=== PATIENT | female | born 1980 | race Caucasian/White ===

== ENCOUNTER 2016-10-06 17:22 | Emergency (ER) | payer BC ==
[~2016-10-06] VITALS: Ht 152.4 cm; Wt 47.6 kg
[2016-10-06 17:25] VITALS: BP 132/88
--- NOTE | 2016-10-06 17:55 | PHYS DOC ---
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 She states that she is also having sinus pressure above the frontal sinus areas. She then states that she is having pain that radiates down her bilateral next 7 to bilateral arms. Patient with equal carrier operator equal peripheral pulses are 2 + cap refills brisk less than 2 seconds. Patient states the pain and discomfort started last night when she was sitting outside. She states that she did try to move a bag of thao letter at [facility] and was unsuccessful. She denies any trauma or falls or injuries. Patient states that last night she took Good[employer] with no relief. She states that while they were in route here to the emergency department today they stopped and she got some ibuprofen she states that she took ibuprofen prior to arrival seems to be feeling a little better. 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 She denies any blurred vision. She does state she thinks she might had a fever yesterday but not take her temperature. Review of Systems Review of Systems Constitutional: Denies fever or chills [] Eyes: Denies change in visual acuity, redness, or eye pain [] HENT: Denies nasal congestion or sore throat. Pain behind bilateral ears with pressure. Respiratory: Denies cough or shortness of breath [] Cardiovascular: No additional information not addressed in HPI [] GI: Denies abdominal pain, nausea, vomiting, bloody stools or diarrhea [] : Denies dysuria or hematuria [] Musculoskeletal: bilateral upper back/neck pain that radiated into bilateral arms. Integument: Denies rash or skin lesions [] Neurologic: Denies headache, focal weakness or sensory changes [] Allergies Allergies Allergies Coded Allergies Type Severity Reaction Last Updated Verified No Known Drug Allergies 10/06/16 No Physical Exam Physical Exam Constitutional: Well developed, well nourished, no acute distress, non-toxic appearance. [] HENT: Normocephalic, atraumatic, bilateral external ears normal, oropharynx moist, no oral exudates, nose normal. Bilateral tympanic membranes appear to be normal. Patient with frontal sinus tenderness on the right. Nares appears to be normal bilaterally. Throat with no erythematous or any nature noted. No anterior cervical adenopathy noted. Eyes: PERRLA, EOMI, conjunctiva normal, no discharge. [] Neck: Normal range of motion, no tenderness, supple, no stridor. [] Cardiovascular:Heart rate regular rhythm, no murmur [] Lungs & Thorax: Bilateral breath sounds clear to auscultation [] Skin: Warm, dry, no erythema, no rash. [] Back: Bilateral neck tenderness with bilateral upper back tenderness. Extremities: No tenderness, no cyanosis, no clubbing, ROM intact, no edema. Shunt was noted to have tenderness over bilateral collarbone areas as well. Equal strength equal carrier operator noted peripheral extremities. Peripheral pulses 2+ cap refill brisk less than 2 seconds. Good sensation noted. Neurologic: Alert and oriented X 3, normal motor function, normal sensory function, no focal deficits noted. [] Psychologic: Affect normal, judgement normal, mood normal. [] EKG EKG [] Radiology/Procedures Radiology/Procedures [] Course & Med Decision Making Course & Med Decision Making Pertinent Labs and Imaging studies reviewed. (See chart for details) Patient was encouraged to use Sudafed to help with sinus pressure and pain and discomfort. A shunt did state that ibuprofen was starting to help with her pain. Recommended ibuprofen 800 mg every 8 hours with food stop taking few develop an upset stomach. Ice packs on 20 minutes off 20 minutes several times a day. Patient with no trauma or injury noted therefore no x-rays are needed. Patient then states that she has a family member that has MS and fibromyalgia is concerned that this may be what she is experiencing. Explained to patient that this is something that will need to be diagnosed by her primary care physician is not something that we evaluate for any emergency department. 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 A shunt will be discharged home in stable condition signs and symptoms to return back to emergency department as been provided. [] Dragon Disclaimer Dragon Disclaimer This electronic medical record was generated, in whole or in part, using a voice recognition dictation system. Departure Departure Impression: Primary Impression: Sinus pressure Additional Impression: Muscle pain Disposition: 01 HOME, SELF-CARE Condition: STABLE Patient Instructions: Muscle Strain, Sinus Headache, [id number] Additional Instructions: Home to rest Ice packs on 20 minutes off 20 minutes several times a day. Ibuprofen 800 mg every 8 hours with food. Stop taking few develop an upset stomach. Sudafed [id number] will help with her sinus pressure. Take as directed by travel accommodation inspector. Use Mucinex [id number] will also help promote drainage for your sinuses take as instructed by the travel accommodation inspector as well. Follow-up with orthopedic in which she state you've work for her. Return back to emergency prior signs symptoms of become worse. Problem Qualifiers NATASHA RUBY [employer] Oct 06, 2016 17:55
== END 2016-10-06 18:02 | disposition home or self-care (01) ==
LOC: ER 17:22
DX: J34.89 Other specified disorders of nose and nasal sinuses (principal); M79.1 Myalgia
CPT/HCPCS: 99281